=== PATIENT | male | born 1950 | race Caucasian/White ===

== ENCOUNTER 2020-01-02 17:47 | Inpatient (IN) | payer MEDICARE, OTHER ==
--- NOTE | 2020-01-02 19:28 | PDOC.FPRHP ---
- History of Present Illness Chief Complaint: cough, pleuritic chest pain History of Present Illness: 69yo CM with h/o COPD and non-hodgkins lymphoma in remission since ' presents as txf from [facility] for indeterminate troponin. Patient states he has chronic R-sided "pleuritic" chest pain with episodes of acute sharp pain on R lower chest during times of high humidity and heat. Had an episode of worsening pain this morning and decided to see his Primary care DEMURRAGE WORKER. DEMURRAGE WORKER ordered CBC, CMP, troponin, CXR. Troponin was indeterminate and thus patient was since to ED for further eval. Patient states no acute changes to pain. No fever/chills, sick contacts, rhinorrhea, sore throat. No n/v, diaphoresis. No abd pain. Has chronic cough, no acute changes. Episodes of dizziness over the past few days but no syncope, falls, or vision changes. Dizziness is non-exertional and non-positional. Chest pain is also non exertional and non positional. In the ED he is currently without any pain other than what he describes as his "usual chest soreness from smoking." Patient states he had a stress test 10 years ago, was told it was normal, and has no known cardiac history. After initial interview, it was disclosed that primary DEMURRAGE WORKER had tested patient for COVID-19 earlier in the day. ED Course: [facility] - ASA 325, EKG sinus valery [facility] - EKG sinus valery - Allergies/Adverse Reactions Allergies Allergy/AdvReac Type Severity Reaction Status Date / Time codeine Allergy Severe Severe Verified 01/03/20 05:44 Hives aspirin Allergy Intermediate Stomach Verified 01/03/20 05:44 Ache - Home Medications Medication Instructions Recorded Confirmed Type Ipratropium/Albuterol Sulfate 1 puff INH QID 01/02/20 01/02/20 History [Combivent Respimat] - History PMHx: Non-Hodgkin's lymphoma (diagnosed 04, remission in ), COPD PSHx: Neck, Back, R knee, cataracts FHx: Denies any known cardiac history in family Social: 50+py smoking history, social drinker, no illicits. Lives alone, retired on disability. - Review of Systems General: denies: fever/chills, weight/appetite/sleep changes, night sweats, fatigue Eyes: denies: vision changes ENT: denies: nasal congestion, rhinorrhea Respiratory: reports: cough (chronic), shortness of breath (chronic). denies: congestion, exercise intolerance Cardiovascular: reports: chest pain (per HPI). denies: palpitation, edema, paroxysmal nocturnal dyspnea, orthopnea Gastrointestinal: denies: nausea, vomiting, diarrhea, constipation, abdominal pain Genitourinary: denies: incontinence, dysuria Skin: denies: rashes - Vital signs BP: 159/65 HR: 50 RR: 15 Tmax: 98.1 Pox: 98% on RA Wt: 77kg - Physical Exam Constitutional: NAD, awake, alert and oriented, well developed HEENT: PERRLA, EOMI, conjunctiva clear, no scleral icterus, grossly normal vision, grossly normal hearing, MMM Neck: supple Heart: normal S1/S2, no murmurs/rubs/gallops, pulses present, no edema, other ( bradycarida, regular rhythm) Lungs: CTAB, no respiratory distress, good air movement, no rales/rhonchi, no wheezing Abdomen: soft, non-tender, bowel sounds present, no masses/distention Musculoskeletal: normal structure, normal tone Neurological: no focal deficit Skin: no rash/lesions Psychiatric: normal mood and affect, good judgment and insight, intact recent and remote memory FMR H&P: Results - Labs Result Diagrams: 01/03/20 07:36 01/03/20 07:36 - EKG Interpretation EKG: Sinus valery with HR 51. QTC 400, MN 158, normal R wave progression. normal axis. NO acute ST or T wave changes. - Radiology Interpretation Chest x-ray Status: image reviewed by me (no acute CPP. sharp angles, normal cardiac sillouette), report reviewed by me FMR H&P: A/P - Problem List (1) Chest pain Status: Acute Code(s): R07.9 - CHEST PAIN, UNSPECIFIED (2) COPD (chronic obstructive pulmonary disease) Status: Chronic - Plan 69yo CM with h/o COPD and non-hodgkins lymphoma in remission since ' admitted for indeterminate troponin #Indeterminate troponin - Trop 0.047 - Chronic R-sided pleuritic chest pain, no acute changes, currently sxs free - nonexertional, not reproducible on exam, non-positional - Suspected chest tightness 2/2 COPD - will trend trops - Monitor on tele - Patient prefers exercise stress, last was 10 years ago and normal per pt, will plan for exercise stress in AM - TSH and Lipid panel in AM - Cont ASA 81mg daily #COVID PUI - low clinical suspicion for COVID-19, no recent contacts and no s/s - was tested by primary DEMURRAGE WORKER at clinic earlier in the day - will place on precautions until results return #COPD - no acute flares, O2 sat stable - cont home combivent - monitor resp status #Elevated BP - BPs 150s-160s/60s in outside ED and at admission - monitor overnight - consider addition of BP med in AM PCP: Tracy Lares NP Code: Full IVF: SL Diet: HH, NPO at DC VTE: SCDs Disposition/LOS: Admit to tele obs for elevated trop and chronic chest pain. Monitor on tele, trend trop, stress in AM. Anticipate LOS <48hrs pending workup. FMR H&P: Upper Level - Plan Date/Time: 01/02/201927 ICarmelita, have evaluated this patient and agree with findings/plan as outlined by international trade specialist resident. Pertinent changes/additions are listed here. 69 yo M with PMH COPD, non hodgkins lymphoma in remission was seen in his PCP DEMURRAGE WORKER 's office this am, labs and covid swab ordered. Patient sent to [facility] for further workup and then transferred here. He reports chronic R sided pain that he describes as pleuritic and occurs several times a year when the weather changes or his COPD flare. Has hx of slow heart rate. Denies hx HTN. COPD: no O2 requirement. Uses combivent BID and albuterol 1-2x daily. Denies fever, change in sputum. Has chronic morning cough. DEMURRAGE WORKER had him scheduled with cardiology on Sunday in [place] for further eval of his asymptomatic bradycardia. PMH reviewed ED: ASA 325 mg VS 159/65, 50, 98% on RA, 77kg, 98.1 PE Gen: NAD, resting comfortably Heart: RRR, no murmur, no carotid bruits, no chest wall tenderness Lungs: good air movement, no wheezing, crackles in the bases Ext: no edema EKG sinus bradycardia Indeterminate troponin - Trop 0.047->0.054 - Heart score 4, low suspicion for ACS - pain is chronic in nature with occasional flares associated with his COPD - monitor on tele - stress test ordered for am, patient will consider this overnight to think and make sure he wants to proceed - TSH, lipids pending. glucose 88 on labs. - ASA 81mg Elevated BP w/o diagnosis of HTN - BPs 150s-160s/60s in outside ED and at admission, wide pulse pressure - consider adding med tomorrow if persists Bradycardia - sinus, asymptomatic, long history of this - has appt with cardiology in [place] on Sunday to establish COPD - not in exacerbation - cont home combivent BID and albuterol prn Dispo: Admit to telemetry for observation. Expected LOS <48hrs. Addendum - Attending - Attending Attestation Date/Time: 01/03/20 1115 I personally evaluated the patient and discussed the management with Lauren on 01/01.. I agree with the History, Examination, Assessment and Plan documented above with any addition or exceptions noted below - 69yo CM with h/o COPD and non- hodgkins lymphoma in remission here for atypical CP with indeterminate Troponin found in w/u. Incidental COVID sample taken so by procedure will be PUI until resulted.
[2020-01-02 20:24] LABS: CKMB 1.1 ng/mL (0-6.6)
[2020-01-02 22:05] VITALS: BMI 22.9
[2020-01-02] MEDS ORDERED: Calcium Carbonate 500 MG ChewTAB PO PRN (22:06)
[2020-01-02] MEDS: Acetaminophen 325 MG TAB PO PRN (22:27)
[2020-01-02 22:43] LABS: Troponin I 0.055 ng/mL (< 0.028)
[2020-01-03 05:23] LABS: Cardiac Risk 6.2 (Less than 4.5)
--- NOTE | 2020-01-03 07:09 | PDOC.FM ---
- Subjective Subjective: NAEO. Patient resting comfortably in bed. No concerns per nursing. Patient denies any recurrent chest pain, SOB, palpitations, NVD. He reports feeling well overall. - Objective MAR Reviewed: Yes Vital Signs & Weight: Vital Signs (12 hours) Temp Pulse Resp BP Pulse Ox 01/03/20 03:05 97.0 F L 45 L 16 147/67 H 97 01/02/20 22:22 96.6 F L 53 L 18 159/72 H 99 Weight Weight 74.571 kg I&O: 01/02/20 01/03/20 01/04/20 06:59 06:59 06:59 Intake Total 200 Balance 200 Result Diagrams: 01/03/20 07:36 01/03/20 07:36 Phys Exam - Physical Examination Constitutional: NAD HEENT: moist MMs, sclera anicteric Neck: supple, full ROM Respiratory: clear to auscultation bilateral Cardiovascular: RRR Gastrointestinal: soft Musculoskeletal: no edema Neurological: non-focal, moves all 4 limbs Psychiatric: normal affect Skin: no rash, normal turgor, cap refill <2 seconds Dx/Plan (1) Chest pain Code(s): R07.9 - CHEST PAIN, UNSPECIFIED Status: Acute (2) COPD (chronic obstructive pulmonary disease) Status: Chronic - Plan Plan: 69yo CM with h/o COPD and non-hodgkins lymphoma in remission since admitted for indeterminate troponin. Indeterminate troponin Chronic R-sided pleuritic chest pain, no acute changes, currently sxs free - nonexertional, not reproducible on exam, non-positional. Suspected chest tightness 2/2 COPD. HEART score of 6. - Trop 0.047 -> 0.055 -> 0.055; Will trend trops - Patient prefers exercise stress, last was 10 years ago and normal per pt; Will plan for exercise stress once COVID results- likely stress in AM. - TSH: 1.0068 (normal); Lipid panel: TG129, Total cholesterol 197, LDL 139, HDL 32 - ASCVD risk: 32%, would recommend High int statin - discussed with patient who declines starting statin. States he will discuss it with his PUBLIC WORKS TECHNICIAN. - Cont ASA 81mg daily COVID PUI Low clinical suspicion for COVID-19, no recent contacts and no s/s. Tested by primary PUBLIC WORKS TECHNICIAN at clinic earlier in the day. - Will place on precautions until results returns. Will re-swab here as patient' s clinic closed and we will get results later tonight. COPD Does not appear in exacerbation. Satting well on RA. - Cont home combivent; Monitor resp status Elevated BP BPs 150s-160s/60s in outside ED and at admission. Overnight, mildly elevated 147 /67. - Will continue to monitor throughout the day and consider addition of BP med such as amlodipine. Dispo: tele obs, trend trop, stress when COVID results DVT: lovenox Code: Full PCP: PUBLIC WORKS TECHNICIAN Arnaud Case discussed Dr. Luis Addendum - Attending - Attending Attestation Date/Time: 01/03/20 1120 I personally evaluated the patient and discussed the management with Dr. Villalta I agree with the History, Examination, Assessment and Plan documented above with any addition or exceptions noted below - Patient without comaplints this mrfarhat. No further chest pain. Afebrile VSS. A/P: 1) Atypical chest pain- troponins- indeterminate; plan for stress test if COVID swab negative. 2) COPD- stbale; continue home meds.
[2020-01-03 07:46] LABS: #Eosinphils 0.2 thou/uL (0.0-0.7); #Lymphocytes 2.3 thou/uL (1.20-3.40); #Monocytes 0.5 thou/uL (0.11-0.59); #Neutrophils 4.6 thou/uL (1.40-6.50); %Basophils 0.5 % (0.0-1.0); %Eosinophils 2.3 % (0.0-10.0); %Lymphocytes 29.7 % (21.0-51.0); %Monocytes 6.5 % (0.0-10.0); Hemoglobin 14.2 g/dL (14.0-18.0); Mean Corpuscular HGB CONC 33.8 g/dL (32.0-36.0); Mean Corpuscular Hemoglobin 31.9 pg (27.0-31.0); Mean Corpuscular Volume 94.3 fL (78.0-98.0); Mean Platelet Volume 6.7 fL (7.4-10.4); Platelet Count 235 thou/uL (130-400); RBC Distribution Width 11.8 % (11.5-14.5); Red Blood Cell (RBC) Count 4.44 mill/uL (4.70-6.10); White Blood Cell (WBC) Count 7.6 thou/uL (4.8-10.8)
[2020-01-03 07:55] LABS: Hemoglobin A1c 5.5 % (4.0-6.0)
[2020-01-03 08:06] LABS: Anion Gap 12 mmol/L (10-20); BUN (Urea Nitrogen) 9 mg/dL (8.4-25.7); Calc. Creatinine Clearance 86 mL/min (70-130); Calcium 9.1 mg/dL (7.8-10.44); Carbon Dioxide 27 mmol/L (23-31); Chloride 103 mmol/L (98-107); Estimated GFR-MDRD 90; Glucose 97 mg/dL (80-115); Potassium 4.7 mmol/L (3.5-5.1); Sodium 137 mmol/L (136-145)
[2020-01-03] MEDS: Aspirin 81 mg Enteric Coated Tablet PO SCH (08:08)
[2020-01-03 08:30] LABS: CKMB 1.6 ng/mL (0-6.6)
[2020-01-03] MEDS ORDERED: Prevnar 13-Val Conj/PF 0.5 ML SYRINGE IM ONE (09:00)
[2020-01-03] MEDS: Albuterol 200 PUFF (6.7GM INHALER) INH SCH ×3 (09:20→17:02)
[2020-01-03] MEDS: Acetaminophen 325 MG TAB PO PRN (11:33)
[2020-01-03 14:02] LABS: CKMB 1.3 ng/mL (0-6.6)
[2020-01-03 17:12] LABS: SARS-CoV-2 MS2 Positive; SARS-CoV-2 N Gene Negative; SARS-CoV-2 S Gene Negative; SARS-CoV-2 orf1ab Negative
[2020-01-03] MEDS ORDERED: Atorvastatin Calcium 40 MG TAB PO SCH (21:00)
--- NOTE | 2020-01-04 07:06 | PDOC.FM ---
- Subjective Subjective: NAEO. Patient resting comfortably in bed. Denies any SOB or chest pain overnight. Reports feeling well. Denies NVD, palpitations. - Objective MAR Reviewed: Yes Vital Signs & Weight: Vital Signs (12 hours) Temp Pulse Resp BP BP Pulse Ox 01/04/20 04:08 97.6 F 48 L 19 119/56 L 97 01/04/20 00:00 97.5 F L 50 L 16 129/59 L 97 Weight Weight 73.346 kg I&O: 01/03/20 01/04/20 01/05/20 06:59 06:59 06:59 Intake Total 200 Balance 200 Result Diagrams: 01/03/20 07:36 01/03/20 07:36 Phys Exam - Physical Examination Constitutional: NAD HEENT: moist MMs, sclera anicteric Neck: supple Respiratory: clear to auscultation bilateral Cardiovascular: RRR Gastrointestinal: soft Musculoskeletal: no edema Neurological: non-focal, moves all 4 limbs Psychiatric: normal affect, A&O x 3 Skin: no rash, normal turgor, cap refill <2 seconds Dx/Plan (1) Chest pain Code(s): R07.9 - CHEST PAIN, UNSPECIFIED Status: Acute (2) COPD (chronic obstructive pulmonary disease) Status: Chronic - Plan Plan: 69yo CM with h/o COPD and non-hodgkins lymphoma in remission since admitted for indeterminate troponin. Indeterminate troponin Chronic R-sided pleuritic chest pain, no acute changes, currently sxs free - nonexertional, not reproducible on exam, non-positional. Suspected chest tightness 2/2 COPD. HEART score of 6. Patient prefers exercise stress, last was 10 years ago and normal per pt. - Trop 0.047 -> 0.055 -> 0.054 --> Trops have now downtrended - Will plan for exercise stress once COVID results-Stress in AM. - TSH: 1.0068 (normal); Lipid panel: TG129, Total cholesterol 197, LDL 139, HDL 32 - ASCVD risk: 32%, would recommend High int statin - discussed with patient who declines starting statin. States he will discuss it with his COLLAR TURNER after discharge. - Cont ASA 81mg daily COPD Does not appear in exacerbation. Satting well on RA. - Cont home combivent; Monitor resp status Elevated BP BPs 150s-160s/60s in outside ED and at admission. Overnight, mildly elevated 147 /67. - Will continue to monitor throughout the day and consider addition of BP med such as amlodipine. Patient likely will not want to start a medication, will advise patient f/u outpatient with COLLAR TURNER to discuss BP. COVID PUI Low clinical suspicion for COVID-19, no recent contacts and no s/s. - NEGATIVE Dispo: AM Stress, dc pending results of stress DVT: lovenox Code: Full PCP: WESLY Lares Case discussed Dr. Luis Addendum - Attending - Attending Attestation Date/Time: 01/04/20 8621 I personally evaluated the patient and discussed the management with Dr. Villalta I agree with the History, Examination, Assessment and Plan documented above with any addition or exceptions noted below - Patient without complaints. Afebrile VSS. A/P: 1) Atypical chest pain and indeterminate troponins- stress test negative for reversible ischemia but appears to have global hypokinesis with EF=46%. Recommended echo to confirm; patient declined and will follow-up outpatient for testing. D/c home with close follow-up.
[2020-01-04] MEDS ORDERED: Regadenoson 0.4 MG/5 ML SYRINGE ONE (08:59)
--- NOTE | 2020-01-04 11:24 | NM ---
Exam: Nuclear medicine cardiac stress with EF and wall motion HISTORY: COPD. Indeterminate troponin COMPARISON: None TECHNIQUE: Patient was administered 9.10 mCi of technetium 99m sestamibi for rest imaging and 29.60 m Ci of technetium 99m sestamibi for stress imaging. Cardiac gating is performed FINDINGS: Homogeneous distribution of the radiotracer in the left ventricle on the attenuation correc tion images. No reversibility or fixed defect TID is 1.12 End-diastolic volume is 162 mL End systolic volume is 88 mL Cardiac gating and wall motion: Global hypokinesis. 46% ejection fraction IMPRESSION: 1. Global hypokinesis. 46% ejection fraction. 2. Homogeneous distribution of the radiotracer. No reversibility or fixed defect. 3. Enlarged left ventricle.
[2020-01-04] MEDS: Albuterol 200 PUFF (6.7GM INHALER) INH SCH ×3 (11:47→11:53)
[2020-01-04] MEDS: Aspirin 81 mg Enteric Coated Tablet PO SCH (11:52)
[2020-01-04 12:32] VITALS: BP 153/71; TEMP 97.5
--- NOTE | 2020-01-05 12:05 | DIS ---
DATE OF ADMISSION: 01/02/2020 DATE OF DISCHARGE: 01/04/2020 RESIDENT: Gisela Villalta MD ADMITTING ATTENDING: Pacsual Alvarez MD DISCHARGE ATTENDING: Ashanti Luis MD CONSULTS: None. PROCEDURES: 1. On 01/04/2020 nuclear stress test showing global hypokinesis and estimated ejection fraction of 46%, no reversibility or fixed defect, enlarged left ventricle. DISCHARGE MEDICATIONS: There were no changes to medications made during the patient's stay. PRIMARY DIAGNOSES: 1. Indeterminate troponins. 2. Possible new dx HFrEF SECONDARY DIAGNOSES: 1. COPD. 2. Elevated blood pressure. HISTORY OF PRESENT ILLNESS/HOSPITAL COURSE: This is a 69-year-old male with a history of COPD and non-Hodgkin's lymphoma in remission, who was transferred from [facility] for indeterminate troponins. The patient states that he has had chronic right-sided pleuritic chest pain with episodes of acute sharp pain on the right lower chest during times of high humidity and heat. He had an episode of worsening pain this morning and decided to see his primary care nurse practitioner. The troponin was indeterminate and the patient was then sent to the ER for further evaluation. The patient denied any acute changes to pain, fever, chills, sick contacts, sore throat, abdominal pain, diaphoresis, nausea, or vomiting. The patient was given aspirin in the ER. An EKG showed sinus bradycardia. It was also discovered that the patient's CAN DOFFER had tested the patient for COVID-19 earlier in the day. The patient's vital signs remained stable throughout his stay with the exception of mildly elevated blood pressures at times. The patient's labs were unremarkable. The patient's initial troponin was 0.058 and downtrended to 0.054. The patient was admitted to [facility] for further workup. The patient's COVID test resulted negative here. The patient's TSH is within normal limits. The lipid panel shows lipids within normal range, but based on the patient's ASCVD risk, he should be on a high-intensity statin. This was discussed with the patient. He declined wanting to start statin and that he will discussed it with his CAN DOFFER. The patient had a nuclear medicine stress test on day 2 of admission, which found the above. The patient declined further workup with an echo and possible cardiology consult. The nurse practitioner was contacted and discussed the results. She will follow up on these issues with the patient in the outpatient setting. DISPOSITION: Stable. DISCHARGE INSTRUCTIONS: 1. Location: Home. 2. Activity ad az. 3. Diet, heart healthy. 4. Follow up with nurse practitioner Tracy Lares within the next 7 days. Job ID: [id number] MTDD
--- NOTE | 2020-01-06 00:32 | PQF ---
Moe Rogers CAITLIN *r [id number] CLINICAL DOCUMENTATION CLARIFICATION FORM: POST DISCHARGE Addendum to original discharge summary date: ____ Late entry note date: __ DATE: 01/06/2020 ATTN:Toby Burrell MD Please exercise your independent, professional judgment in responding to the clarification form. Clinical indicators are provided on the bottom of this form for your review Please check appropriate box(s): HEART FAILURE: ACUITY [ ] Acute [ ] Acute on Chronic [ ] Chronic [ ] Other diagnosis [ x ] Unable to determine In addition, please specify: Present on Admission (POA): [x ] Yes [ ] No [ ] Unable to determine For continuity of documentation, please document condition throughout progress notes and discharge summary. Thank You. CLINICAL INDICATORS - SIGNS / SYMPTOMS / LABS - possible new dx HFrEF- DS, 01/03, ASHISH MONTE - Chronic right sided pleuritic chest pain with episode of acute sharp pain on the right lower chest during times of high humidity and heat-DS, 01/03, ASHISH MONTE - Troponin: 0.054H on 01/01, 0.058H on 01/12-Laboratory report - EKG shows : sinus bradycardia- ED record, 01/01, Juan Carlos Lopez MD - Elevated BPs: 150s-160s/60s in outside ED-H&P, Pacsual Alvarez MD - EF of 46%-DS, 01/03LAVELL CAITLIN RISKS: - PMH: COPD- H&P, 01/01, Pascual Alvarez MD - Advanced Age: 69 TREATMENTS: - EKG-ED record, 01/01, Juan Carlos Lopez MD - Regadenoson.0.4mg-MAR, 01/03 (This form is maintained as a part of the permanent medical record) 2014 [employer]. All Rights Reserved Min KULDIP
--- NOTE | 2020-01-10 11:43 | EKG ---
Test Reason : Blood Pressure : / mmHG Vent. Rate : 051 BPM Atrial Rate : 051 BPM P-R Int : 158 ms QRS Dur : 082 ms QT Int : 434 ms P-R-T Axes : 078 042 037 degrees QTc Int : 400 ms Sinus bradycardia Otherwise normal ECG Confirmed by TAMMY ARAUJO ([id number]), video tape editor BIJAL AMEZQUITA ([id number]) on 01/10/2020 11:42:35 AM Referred By: Confirmed By:TAMMY Ross
== END 2020-01-04 13:19 | disposition home or self-care (01) | DRG 948 ==
LOC: ERS 17:47 → OBSVTOIN 19:27 → 2SW 19:27
PROVIDERS: ADMIT Family Medicine; ATTEND Family Medicine
PROC: 8E0ZXY6 Isolation (ICD-10-PCS; principal; 2020-01-02)
DX: R79.89 Other specified abnormal findings of blood chemistry (principal); C85.90 Non-Hodgkin lymphoma, unspecified, unspecified site; I50.20 Unspecified systolic (congestive) heart failure; R07.89 Other chest pain; J44.9 Chronic obstructive pulmonary disease, unspecified; Z20.828 Contact with and (suspected) exposure to other viral communicable diseases; F32.9 Major depressive disorder, single episode, unspecified; F41.9 Anxiety disorder, unspecified; R00.1 Bradycardia, unspecified; R03.0 Elevated blood-pressure reading, without diagnosis of hypertension; Z96.651 Presence of right artificial knee joint; F17.210 Nicotine dependence, cigarettes, uncomplicated; Z98.42 Cataract extraction status, left eye; Z98.41 Cataract extraction status, right eye; Z88.9 Allergy status to unspecified drugs, medicaments and biological substances; Z88.6 Allergy status to analgesic agent
CPT/HCPCS: 36415; 36416; 78452; 80048; 80061; 82553; 83036; 84443; 84484; 85025; 87635; 93005; 93017; A9500; J2785; U0003

== ENCOUNTER 2020-12-24 12:04 | Outpatient (CLI) | payer MEDICARE, MEDICAID | END 2020-12-24 12:05 | disposition home or self-care (01) | LOC: BICMRI 12:04 | PROVIDERS: ATTEND Family Medicine | DX: M47.22 Other spondylosis with radiculopathy, cervical region (principal); M50.11 Cervical disc disorder with radiculopathy, high cervical region; M43.12 Spondylolisthesis, cervical region; M43.22 Fusion of spine, cervical region; M25.78 Osteophyte, vertebrae; M48.02 Spinal stenosis, cervical region; M48.03 Spinal stenosis, cervicothoracic region | CPT/HCPCS: 72040; 72141 ==

== ENCOUNTER 2020-12-29 14:05 | Outpatient (CLI) | payer MEDICARE ==
[2020-12-29 15:42] LABS: Bilirubin Neg (Negative); Blood, Urine 25 (Negative); Glucose, Urine (Dipstick) Normal (Negative); Ketone, Urine Negative (Negative); Leukocyte 25 (Negative); Nitrite Negative (Negative); Protein, Urine (Dipstick) Negative (Neg-Trace); Urobilinogen Normal mg/dL (Less than 2)
[2020-12-29 15:59] LABS: Clarity Clear (Clear)
[2020-12-29 16:01] LABS: #Eosinphils 0.2 10x3/uL (0.0-0.5); #Monocytes 0.5 10x3/uL (0.0-1.1); #Neutrophils 5.3 10x3/uL (1.5-8.4); %Basophils 0.4 % (0.0-2.0); %Eosinophils 1.7 % (0.0-6.0); %Lymphocytes 34.4 % (18.0-47.0); %Monocytes 5.8 % (0.0-10.0); %Neutrophils 57.3 % (40.0-75.0); Hemoglobin 13.1 g/dL (13.5-17.5); Mean Corpuscular HGB CONC 33.6 g/dL (32.0-36.0); Mean Corpuscular Hemoglobin 30.7 pg (27.0-33.0); Mean Corpuscular Volume 91.3 fl (81.2-95.1); Mean Platelet Volume 9.3 fl (7.4-10.4); Platelet Count 226 10x3/uL (150-450); RBC Distribution Width 12.9 % (11.5-14.5); Red Blood Cell (RBC) Count 4.27 10x6/uL (4.32-5.72); White Blood Cell (WBC) Count 9.2 10x3/uL (3.5-10.5)
[2020-12-29 16:04] LABS: Bacteria/HPF Rare-Few HPF (None Seen); RBC/HPF 0-3 HPF (0-3); Squamous Epithelial 0-3 HPF (0-3); WBC/HPF 0-3 HPF (0-3)
[2020-12-30 01:00] LABS: SARS-CoV-2 PCR by NAA Not Detected (NotDetected)
== END 2020-12-29 14:06 | disposition home or self-care (01) ==
LOC: LABBT 14:05
PROVIDERS: ATTEND Orthopaedic Surgery Hand Surgery
DX: Z01.818 Encounter for other preprocedural examination (principal); Z20.822 Contact with and (suspected) exposure to COVID-19; G56.01 Carpal tunnel syndrome, right upper limb; G56.21 Lesion of ulnar nerve, right upper limb
CPT/HCPCS: 81001; 85025; 93005; U0003; U0005; 87635; 93010

== ENCOUNTER 2021-01-03 12:02 | Day surgery (SDC) | payer MEDICARE, MEDICAID ==
[2020-12-31 10:46] VITALS: BMI 24.3
[2021-01-03] MEDS ORDERED: Bupivacaine PF 0.5% 30 ML VIAL ONE (13:16)
[2021-01-03] MEDS ORDERED: Sodium Chloride 0.9% 10 ML ONE (13:16)
[2021-01-03] MEDS ORDERED: Betamet Acet/Betamet Na Ph 30 MG/5 ML VIAL ONE (13:16)
[2021-01-03] MEDS ORDERED: Bacitracin Zinc Ointment 30 gm TUBE ONE (13:16)
[2021-01-03] MEDS ORDERED: Fentanyl 100 MCG/2 ML VIAL ONE ×2 (13:19→13:38)
[2021-01-03] MEDS ORDERED: Midazolam HCl 2 mg/2 ml Vial ONE (13:19)
[2021-01-03] MEDS ORDERED: PROPOFOL 200 MG/20 ML VIAL ONE (15:21)
[2021-01-03] MEDS ORDERED: Lidocaine 1% PF 5 ML VIAL ONE (15:21)
[2021-01-03] MEDS ORDERED: ePHEDrine Sulfate 50 MG/10 ML VIAL ONE (15:21)
[2021-01-03] MEDS ORDERED: Rocuronium Bromide 10 MG/ML (10ML VIAL) ONE (15:21)
[2021-01-03] MEDS ORDERED: Ketorolac Tromethamine 30 MG/ML VIAL ONE (18:25)
[2021-01-03] MEDS ORDERED: HYDROcodone/Acetaminophen 5/325 mg Tablet ONE (19:10)
== END 2021-01-03 20:00 | disposition home or self-care (01) ==
LOC: SDC 12:02
PROVIDERS: ATTEND Orthopaedic Surgery Hand Surgery
PROC: 0MT30ZZ Resection of Right Elbow Bursa and Ligament, Open Approach (ICD-10-PCS; principal; 2021-01-03)
PROC: 01N50ZZ Release Median Nerve, Open Approach (ICD-10-PCS; 2021-01-03)
PROC: 01N40ZZ Release Ulnar Nerve, Open Approach (ICD-10-PCS; 2021-01-03)
DX: M70.21 Olecranon bursitis, right elbow (principal); G56.03 Carpal tunnel syndrome, bilateral upper limbs; G56.23 Lesion of ulnar nerve, bilateral upper limbs; F17.200 Nicotine dependence, unspecified, uncomplicated; M48.02 Spinal stenosis, cervical region; M19.90 Unspecified osteoarthritis, unspecified site; E78.00 Pure hypercholesterolemia, unspecified; G89.29 Other chronic pain; Z79.899 Other long term (current) drug therapy; Z88.5 Allergy status to narcotic agent; Z88.6 Allergy status to analgesic agent
CPT/HCPCS: 88304; J0690; J0702; J1885; J2250; J2704; J3010; J3490; S0020